=== PATIENT | female | born 1960 | race Caucasian/White ===

== ENCOUNTER 2016-07-08 15:45 | Emergency (ER) | payer OTHER ==
[~2016-07-08 15:45] MED LIST: FEOSOL325 MG PO; KLONOPIN0.5 MG PO; LACTINEX1 EACH PO; LEVAQUIN500 MG PO; LOPRESSOR25 MG PO; PERCOCET 5/3251 TAB PO; PROZAC20 MG PO; XARELTO10 MG PO
[2016-07-08 16:43] LABS: BASOPHIL 1.6 % (0-2); EOSINOPHIL 1.2 % (0-5); HCT 41.5 % (37.0-47.0); HGB 14.1 g/dl (12.5-16.0); LYMPHOCYTE 51.8 % (15-48); MCH 34.8 pg (25.0-31.0); MCV 102.5 fL (78.0-100.0); MONOCYTE 9.1 % (0-12); MPV 9.5 fL (6.0-9.5); NEUTROPHIL 36.3 % (41-80); PLT 167 K/uL (150-400); RBC 4.05 M/uL (4.20-5.40); RDW 13.5 % (11.5-14.0); WBC 4.9 K/uL (4.0-10.5)
[2016-07-08 17:05] LABS: ALBUMIN 3.8 g/dL (3.5-5.0); BILIRUBIN - TOTAL 0.9 mg/dL (0.1-1.0); CREATININE 0.8 mg/dL (0.5-1.0); GLOBULIN (CALCULATION) 3.5 g/dL (2.2-4.2); POTASSIUM 3.9 mmol/L (3.5-5.1); TOTAL PROTEIN 7.3 g/dL (6.4-8.3)
[2016-07-08 19:12] LABS: BILIRUBIN NEGATIVE (NEGATIVE); BLOOD NEGATIVE Ery/uL (NEGATIVE); CLARITY CLEAR (CLEAR); COLOR YELLOW (YELLOW); GLUCOSE (U) NORMAL (NORMAL); KETONE (U) NEGATIVE (NEGATIVE); LEUKOCYTES NEGATIVE Leu/uL (NEGATIVE); NITRITE NEGATIVE (NEGATIVE); PROTEIN NEGATIVE (NEGATIVE); SPECIFIC GRAVITY 1.015 (1.001-1.030)
== END 2016-07-08 20:52 | disposition home or self-care (01) ==
LOC: FER 15:45
PROVIDERS: Emergency Medicine
DX: F10.129 Alcohol abuse with intoxication, unspecified (principal); M79.605 Pain in left leg; I10 Essential (primary) hypertension; F17.210 Nicotine dependence, cigarettes, uncomplicated; Z86.19 Personal history of other infectious and parasitic diseases; Z79.899 Other long term (current) drug therapy; Y90.8 Blood alcohol level of 240 mg/100 ml or more
CPT/HCPCS: 36415; 80053; 81003; 82150; 83690; 85025; G0480; J3411; J3475